=== PATIENT | male | born 2000 | race Two or more races ===

== ENCOUNTER 2022-02-16 10:54 | Emergency (ER) | payer BC, OTHER ==
[~2022-02-16] VITALS: Ht 175.3 cm; Wt 81.8 kg
[2022-02-16] MEDS ORDERED: IBUPROFEN 600 MG TAB PO ONE (15:00)
[2022-02-16] MEDS ORDERED: CYCL-837 PO (17:53)
[2022-02-16] MEDS ORDERED: IBUP600T28 PO (17:53)
[2022-02-16 20:05] VITALS: BP 148/92
== END 2022-02-16 20:05 | disposition home or self-care (01) ==
LOC: ER 10:54 → EDBD 10:54 → ER 20:05
DX: S39.012A Strain of muscle, fascia and tendon of lower back, initial encounter (principal); S20.211A Contusion of right front wall of thorax, initial encounter; S70.02XA Contusion of left hip, initial encounter; S70.01XA Contusion of right hip, initial encounter; V43.52XA Car driver injured in collision with other type car in traffic accident, initial encounter; Y93.89 Activity, other specified; Y92.410 Unspecified street and highway as the place of occurrence of the external cause; Y99.8 Other external cause status
CPT/HCPCS: 71101; 72100; 73502